=== PATIENT | male | born 2000 | race Caucasian/White ===

== ENCOUNTER → 2021-08-28 | Outpatient (CLI) | payer OTHER | LOC: ECHO 13:15 → NM 14:30 | DX: R07.9 Chest pain, unspecified (principal); R00.2 Palpitations | CPT/HCPCS: ECHO; 93017; 93306 ==

== ENCOUNTER 2021-10-12 09:59 | Emergency (ER) | payer OTHER ==
[2021-10-12] MEDS ORDERED: OMEPRAZOLE20 M1 PO (11:03)
== END 2021-10-12 11:18 | disposition home or self-care (01) ==
LOC: ER1 09:59
DX: R07.89 Other chest pain (principal); I10 Essential (primary) hypertension
CPT/HCPCS: 71045; 93005; 99285